=== PATIENT | female | born 1970 | race Caucasian/White ===

== ENCOUNTER 2016-08-03 18:16 | Emergency (ER) | payer BC ==
[2016-08-03 19:21] VITALS: BP 108/71
--- NOTE | 2016-08-03 19:47 | UC ---
Laceration HPI - HPI Summary HPI Summary: 46 yo female s/p laceration on glass just prior to arrival unsure of tetanus status declines update - History Of Current Complaint Chief Complaint: UCLaceration Stated Complaint: FINGERS LACERATIONS BOTH HANDS Time Seen by Provider: 08/03/16 19:27 Hx Obtained From: Patient Laceration Location: Finger Mechanism Of Injury: Sharp Trauma Onset/Duration: Sudden Onset Severity: Mild Pain Intensity: 3 Pain Scale Used: 0-10 Numeric - Allergies/Home Medications Allergies/Adverse Reactions: Allergies Allergy/AdvReac Type Severity Reaction Status Date / Time No Known Allergies Allergy Verified 08/03/16 19:21 Home Medications: Home Medications Progesteron Cream From [employer] 08/03/16 [History] PMH/Surg Hx/FS Hx/Imm Hx Endocrine History Of: Denies: Diabetes, Thyroid Disease Cardiovascular History Of: Denies: Cardiac Disorders, Hypertension Respiratory History Of: Denies: COPD, Asthma GI/ History Of: Denies: Ulcer - Surgical History Surgical History: Yes Surgery Procedure, Year, and Place: 2008 pt had an anal incision to stop a spasm , 2000 inguinal hernia repair. 1983 arthroscopic surgery to rt knee, 1976 t&a - Family History Known Family History: Positive: Hypertension - Social History Alcohol Use: Rare Substance Use Type: None Smoking Status (MU): Never Smoked Tobacco Review of Systems Constitutional: Negative Skin: Negative Eyes: Negative ENT: Negative Respiratory: Negative Cardiovascular: Negative Gastrointestinal: Negative Genitourinary: Negative Motor: Negative Neurovascular: Negative Musculoskeletal: Negative Neurological: Negative Psychological: Negative All Other Systems Reviewed And Are Negative: Yes Physical Exam Triage Information Reviewed: Yes Appearance: Well-Appearing, No Pain Distress, Well-Nourished Vital Signs: Initial Vital Signs Temp 98.1 F 08/03/16 19:15 Pulse 67 08/03/16 19:15 Resp 18 08/03/16 19:15 BP 108/71 08/03/16 19:15 Pulse Ox 100 08/03/16 19:15 Vital Signs Reviewed: Yes Eyes: Positive: Conjunctiva Clear ENT: Positive: Hearing grossly normal. Negative: Nasal congestion, Nasal drainage, Trismus, Muffled/hoarse voice Neck: Positive: Supple Respiratory: Positive: No respiratory distress, No accessory muscle use Cardiovascular: Negative: Tachycardia, Bradycardia Musculoskeletal: Positive: ROM Intact, No Edema Neurological: Positive: Alert Psychological Exam: Normal Skin Exam: Other - see images Laceration Repair - Laceration Repair 1 Description: Joint Proximity Laceration Size After Repair: Length (cm) - 1.5, Width (mm) - 2, Depth (mm) - 2 Modified For Repair: No Type Injection: Digital Anesthesia Used: 2.0% Lido, 0.25% Marcaine Additive Used (in ml): Bicarb Cleansing Completed Via Routine Prep: Yes Irrigation With Pressure Irrigation Device: Yes Closure Material: Sutures Closure Method: Single Layer Suture Of: Skin Suture Type: Nylon - 5-0 nylon 4 interrupted 2 Description: Linear Laceration Size After Repair: Length (cm), Width (mm) - 1, Depth (mm) - 2 Modified For Repair: No Irrigation With Pressure Irrigation Device: Yes Closure Material: Skin Adhesive Laceration Course/Dx - Differential Dx - Laceration/Wound Provider Diagnoses: left ring finger laceration (sutured). right index finger laceration (skin adhesive) Discharge - Discharge Plan Condition: Stable Disposition: HOME Patient Education Materials: Care For Your Stitches (ED), Skin Adhesive Care ( ED) Referrals: Tameka Marsh MD [Primary Care Provider] - 1 Week Additional Instructions: gently clean sutured laceration twice daily with soap and water apply a thin film of antibiotic ointment. I like aquaphor healing ointment or polysporin bandaid for a few days sutures need to be removed in 7-10 days recheck for concerns of infection Images Hands: 1 - laceration (sutured) 2 - laceration (glue)
[2016-08-03] MEDS ORDERED: predniSONE TAB* 20 MG PO ONE (19:49)
[2016-08-03] MEDS ORDERED: Albuterol HFA INHALER* 8 gm MDI INH ONE (19:49)
[2016-08-03] MEDS ORDERED: Amoxicillin PO (*) 500 MG CAP PO ONE (19:50)
[2016-08-03] MEDS ORDERED: Sodium Bicarbonate 8.4% IV* 50 ML VIAL ONE (19:56)
[2016-08-03] MEDS ORDERED: Lidocaine 2% PF * 5 ML VIAL ONE (19:56)
[2016-08-03] MEDS ORDERED: Bupivacaine 0.25% SDV* 30 ML ONE (19:56)
== END 2016-08-03 20:40 | disposition home or self-care (01) ==
LOC: UCEAST 18:16
DX: S61.215A Laceration without foreign body of left ring finger without damage to nail, initial encounter (principal); S61.210A Laceration without foreign body of right index finger without damage to nail, initial encounter; W25.XXXA Contact with sharp glass, initial encounter; Y93.9 Activity, unspecified; Y92.9 Unspecified place or not applicable
CPT/HCPCS: 12001; 99211; G0463